=== PATIENT | female | born 1970 | race Caucasian/White ===

== ENCOUNTER 2016-11-04 08:00 | Outpatient (CLI) | payer MEDICAID | END 2016-11-04 08:01 | disposition home or self-care (01) | DX: L08.9 Local infection of the skin and subcutaneous tissue, unspecified (principal) ==

== ENCOUNTER 2017-02-13 09:21 | Outpatient (CLI) | payer MEDICAID ==
--- NOTE | 2017-02-13 15:19 | DEXA Report ---
DEXA SCAN: 02/13/2017 CLINICAL INDICATION: A 46-year-old female with inflammatory arthritis. TECHNIQUE: Dual energy x-ray absorptiometry (DXA) was performed on a [employer]pi[employer] system. Regions measured are the AP spine, femoral neck, and, if needed, forearm. COMPARISON: None. In accordance with the International Society for Clinical Densitometry (ISCD) guidelines, data from previous exams may be reanalyzed using current recommendations and techniques. This is done to allow a more accurate basis for comparison with the current study. FINDINGS: The data for the lumbar spine is as follows: REGION BMD (g/cm/cm) T-SCORE Z-SCORE L1 0.898 -1.9 -1.9 L2 0.911 -2.4 -2.4 L3 1.070 -1.1 -1.1 L4 1.190 -0.1 -0.1 TOTAL 1.022 -1.3 -1.3 NOTE: All evaluable vertebrae are used for classification. The data for the hip is as follows: REGION BMD (g/cm/cm) T-SCORE Z-SCORE Neck 0.937 -0.7 -0.2 TOTAL 0.920 -0.7 -0.5 NOTE: The femoral neck or total proximal femur, whichever is lowest, is used for classification. * Denotes significant change at the 95% confidence level. Denotes dissimilar scan types or analysis methods. IMPRESSION: THE WHO CLASSIFICATION BASED ON THE INTERNATIONAL REFERENCE STANDARD IS MILD OSTEOPENIA. THE FRACTURE RISK IS INCREASED. RECOMMENDATION: Patients with diagnosis of osteoporosis or osteopenia should have regular bone mineral density assessment. For those eligible for Medicare, routine testing is allowed once every 2 years. Testing frequency can be increased for patients who have rapidly progressing disease or for those who are receiving medical therapy to restore bone mass. COMMENT: World Health Organization (WHO) definitions for osteoporosis and osteopenia: NORMAL BMD: T-score at -1.0 or higher, fracture risk is low. OSTEOPENIA BMD: T-score between -1.0 and -2.5, fracture risk is increased. OSTEOPOROSIS BMD: T-score at -2.5 or lower, fracture risk high. National Osteoporosis Foundation recommends: 1. Obtain adequate dietary calcium (at least 1200 mg per day) and vitamin D (400 -800 international units per day). 2. Participate, as appropriate, in regular weightbearing and muscle- strengthening exercise. 3. Avoid tobacco use and reduce alcohol and caffeine intake. 4. For more detailed information see the website at www.NOF.org. MTDD
== END 2017-02-13 09:22 | disposition home or self-care (01) ==
LOC: DI 09:21
PROVIDERS: ATTEND Obstetrics & Gynecology
DX: M85.88 Other specified disorders of bone density and structure, other site (principal)
CPT/HCPCS: 77080

== ENCOUNTER 2017-02-14 14:38 | Outpatient (CLI) | payer MEDICAID ==
--- NOTE | 2017-02-17 09:00 | Mammography Report ---
DIGITAL BILATERAL SCREENING MAMMOGRAM: 02/14/2017 CLINICAL HISTORY: A 46-year-old female in for routine screening mammogram. Patient's family history indicates an aunt and grandmother with breast cancers. These were postmenopausal breast cancers. P faye has had no breast surgeries. COMPARISON: 08/05/2008, 11/18/2010, 02/15/2012, 11/21/2014, 11/06/2015 TECHNIQUE: Craniocaudad and oblique lateral views of each breast were obtained with [employer] digital mammography. FINDINGS: Breast parenchyma consists of scattered fibroglandular densities. No clusters of calcific ation are seen. No masses are noted. No change is detected. IMPRESSION: BREASTS APPEAR RADIOGRAPHICALLY BENIGN. BIRADS CATEGORY 1 - NEGATIVE. RECOMMENDATIONS: Annual bilateral screening mammography. STANDARD QUALIFYING STATEMENTS 1. This examination was reviewed with the aid of Computer-Aided Detection (CAD). 2. A negative or benign imaging report should not delay biopsy if clinically suspicious findings are present. Consider surgical consultation if warranted. More than 5% of cancers are not identified by i maging. 3. Dense breasts may obscure an underlying neoplasm. JOB #: [id number] EXT JOB #:[id number]
== END 2017-02-14 14:39 | disposition home or self-care (01) ==
LOC: DI.N 14:38
PROVIDERS: ATTEND Obstetrics & Gynecology
DX: Z12.39 Encounter for other screening for malignant neoplasm of breast (principal)
CPT/HCPCS: 77067

== ENCOUNTER 2017-12-08 08:00 | Outpatient (CLI) | payer MEDICAID, MEDICARE ==
[2017-12-08 19:02] LABS: BASOPHILS # (AUTO) 0.1 10^3/uL (0.0-0.1); BASOPHILS % (AUTO) 0.9 %; EOSINOPHILS # (AUTO) 0.1 10^3/uL (0.0-0.7); EOSINOPHILS % (AUTO) 1.9 %; HGB - HEMOGLOBIN 15.2 g/dL (12.0-16.0); LYMPHOCYTES # (AUTO) 1.7 10^3/uL (1.5-3.5); LYMPHOCYTES % (AUTO) 24.1 %; MEAN CORPUSCULAR HEMOGLOBIN 30.4 pg (27.0-31.0); MEAN CORPUSCULAR HGB CONC 32.5 g/dL (32.0-36.0); MEAN CORPUSCULAR VOLUME 93.4 fL (81.0-99.0); MEAN PLATELET VOLUME 7.3 fL (7.9-10.8); MONOCYTES # (AUTO) 0.6 10^3/uL (0.0-1.0); MONOCYTES % (AUTO) 8.5 %; NEUTROPHILS # (AUTO) 4.6 10^3/uL (1.5-6.6); NEUTROPHILS % (AUTO) 64.6 %; PLT - PLATELET COUNT 387 10^3/uL (130-450); RED BLOOD COUNT 4.99 10^6/uL (4.20-5.40); RED CELL DISTRIBUTION WIDTH 13.4 % (12.0-15.0); WHITE BLOOD COUNT 7.1 x10^3/uL (4.8-10.8)
[2017-12-08 19:39] LABS: ALBUMIN 4.4 g/dL (3.2-5.5); ALBUMIN/GLOBULIN RATIO 1.6 (1.0-2.2); ALKALINE PHOSPHATASE 49 IU/L (42-121); ALT ALANINE AMINOTRANSFERASE 31 IU/L (10-60); AST ASPARTATE AMINOTRANSFERASE 30 IU/L (10-42); BILIRUBIN,TOTAL 0.7 mg/dL (0.2-1.0); BUN - BLOOD UREA NITROGEN 11 mg/dL (6-20); CALCIUM 9.2 mg/dL (8.5-10.3); CARBON DIOXIDE - CO2 25 mmol/L (21-32); CHLORIDE 105 mmol/L (101-111); CHOL/HDL RATIO 7.7 (<4.4); CHOLESTEROL 240 mg/dL; CREATININE 0.8 mg/dL (0.4-1.0); GFR - MDRD 76 (>89); GLUCOSE 100 mg/dL (70-100); HDL CHOLESTEROL 31 mg/dL; LDL CHOLESTEROL,CALCULATED 185 mg/dL; SODIUM 137 mmol/L (135-145); TOTAL PROTEIN 7.2 g/dL (6.7-8.2); VLDL CHOLESTEROL 24 mg/dL
== END 2017-12-08 08:01 | disposition home or self-care (01) ==
LOC: LAB.WCP 08:00
PROVIDERS: ATTEND Physician Assistant Medical
DX: I10 Essential (primary) hypertension (principal)
CPT/HCPCS: 36415; 80053; 80061; 83721; 85025

== ENCOUNTER 2018-09-04 14:39 | Outpatient (CLI) | payer MEDICARE ==
[2018-09-04 20:20] LABS: CHOL/HDL RATIO 4.3 (<4.4); CHOLESTEROL 183 mg/dL; HDL CHOLESTEROL 43 mg/dL; LDL CHOLESTEROL,CALCULATED 125 mg/dL; LDL/HDL RATIO 2.9 (<4.4); VLDL CHOLESTEROL 15 mg/dL
== END 2018-09-04 23:59 | disposition home or self-care (01) ==
LOC: LAB.WCP 14:39
PROVIDERS: ATTEND Physician Assistant Medical
DX: E78.5 Hyperlipidemia, unspecified (principal)
CPT/HCPCS: 36415; 80061; 83721

== ENCOUNTER 2019-02-22 15:07 | Outpatient (CLI) | payer MEDICARE ==
--- NOTE | 2019-02-22 16:39 | MRI Report ---
Reason: CERVICAL RADICULOPATHY Procedure Date: 02/22/2019 Accession Number: [id number] / [id number] Procedure: MRI - Cervical Spine W/O CPT Code: FULL RESULT: EXAM: MRI CERVICAL SPINE WITHOUT CONTRAST EXAM DATE: 02/22/2019 04:00 PM. CLINICAL HISTORY: CERVICAL RADICULOPATHY, neck pain, bilateral arm pain. COMPARISONS: CERVICAL SPINE 2 VIEW 01/05/2017 3:58 PM. TECHNIQUE: Multiplanar, multisequence T1-weighted and fluid-sensitive sequences of the cervical spine without contrast. Other: None. FINDINGS: Detail mildly compromised by motion. Neurologic Structures: The visualized posterior fossa structures are unremarkable. No signal abnormality in the visualized spinal cord. Alignment: No scoliosis or spondylolisthesis. Bone Marrow: No gross fractures or bone lesions. No marrow edema. Interspace Levels/Facets: C1-C2: Unremarkable. C2-C3: Unremarkable. C3-C4: Unremarkable. C4-C5: Unremarkable. C5-C6: There is mild disk height loss and endplate degenerative changes. There is a disk osteophyte complex with moderate central canal narrowing. There is severe right and mild left neural foraminal narrowing. C6-C7: There is a disk osteophyte complex with mild central canal narrowing. There is severe right and mild left neural foraminal narrowing. C7-T1: Unremarkable. Musculature: Normal. No edema or fatty atrophy. Other: The paravertebral and prevertebral soft tissues are normal. IMPRESSION: 1. C5-C6 disk osteophyte complex with moderate central canal narrowing. 2. C6-C7 mild central canal narrowing. 3. Severe right C5-C6 and severe right C6-C7 neural foraminal narrowing. Mild left C5-C6 and mild left C6-C7 neural foraminal narrowing. RADIA
--- NOTE | 2019-02-25 06:38 | MRI Report ---
Reason: LUMBAR REGION AND CEVERICAL RADICULOPATHY Procedure Date: 02/22/2019 Accession Number: [id number] / [id number] Procedure: MRI - Lumbar Spine W/O CPT Code: FULL RESULT: EXAM: MRI LUMBAR SPINE WITHOUT CONTRAST EXAM DATE: 02/22/2019 04:20 PM. CLINICAL HISTORY: Lumbar radiculopathy. COMPARISON: MRI LUMBAR SPINE W/O CONT 10/30/2012 7:43 AM. TECHNIQUE: Multiplanar, multisequence T1-weighted and fluid-sensitive sequences of the lumbar spine from T9 to S1 without contrast. Other: None. FINDINGS: Spinal Canal: The conus terminates at L2. The conus medullaris and cauda equina are unremarkable. Alignment: Mild retrolisthesis at L3-L4, L4-L5, and L5-S1 is stable. Bone Marrow: Five aet-etn-[id number] lumbar vertebral bodies are assumed. No gross fractures or bone lesions. No bone marrow replacement. Disk Levels/Facets: T9-T10: On sagittal images, there is a minimal disk bulge without impingement of the spinal cord. The foramina are patent. T10-T11: On sagittal images, there is a minimal disk bulge. No spinal cord impingement is seen. The foramina are patent. T11-T12: On sagittal images, a mild disk bulge is present without spinal cord impingement. A left perineural cyst is noted. The foramina are patent. T12-L1: Unremarkable. L1-L2: Unremarkable. L2-L3: Left side facet arthropathy results in mild left foraminal narrowing. The spinal canal and right foramen are patent. These findings are stable. L3-L4: A disk bulge and ligamentum flavum infolding result in mild spinal canal stenosis. There is mild bilateral foraminal narrowing. Spinal canal and foraminal stenosis is new compared to the prior MRI. L4-L5: A disk bulge and ligamentum flavum infolding result in mild spinal canal stenosis. There is mild bilateral foraminal narrowing. Spinal canal and foraminal stenosis is new compared to the prior MRI. L5-S1: A left foraminal protrusion extends to the left foramen. Posterior displacement of the left S1 nerve root is noted. There is mild spinal canal stenosis. Disk height loss and bilateral facet arthropathy results in mild bilateral foraminal narrowing. These findings are similar to the prior MRI. Musculature: Normal. No edema or fatty atrophy. Other: The partially visualized retroperitoneum is unremarkable. IMPRESSION: 1. Normal conus medullaris and cauda equina. 2. Mild posterior displacement of the descending left S1 nerve root in the lateral recess due to a paracentral protrusion is stable compared to the lumbar spine MRI from 10/30/2012. 3. Mild progression of degenerative changes are noted at L3-L4 and L4-L5 but no high-grade spinal canal or foraminal stenosis is seen at these levels. Comment: The following findings are so common in adults without low back pain that while we report their presence, they must be interpreted with caution and in the context of the clinical situation. (Reference Lidiavik et al, Spine 2001) Prevalence of findings in patients without low back pain: Disk degeneration (any evidence): 92% Disk desiccation/T2 signal loss: 83% Disk height loss: 56% Disk bulge: 64% Disk protrusion: 32% Annular tear/high intensity zone: 38% RADIA
== END 2019-02-22 15:08 | disposition home or self-care (01) ==
LOC: DI 15:07
PROVIDERS: ATTEND Physician Assistant Medical
DX: M54.12 Radiculopathy, cervical region (principal); M48.02 Spinal stenosis, cervical region; M51.16 Intervertebral disc disorders with radiculopathy, lumbar region; M25.78 Osteophyte, vertebrae
CPT/HCPCS: 72141; 72148

== ENCOUNTER 2019-07-29 09:00 | Outpatient (CLI) | payer MEDICARE | END 2019-07-29 23:59 | disposition home or self-care (01) | LOC: LAB.R 09:00 | PROVIDERS: ATTEND Physician Assistant Medical | DX: L20.9 Atopic dermatitis, unspecified (principal) | CPT/HCPCS: 81599; 87070; 87077; 87181; 87184; 87205 ==

== ENCOUNTER 2019-09-27 07:56 | Outpatient (CLI) | payer MEDICARE | END 2019-09-27 07:57 | disposition EMS.NT | LOC: EMS 07:56 | PROVIDERS: ATTEND Surgery | DX: S80.921A Unspecified superficial injury of right lower leg, initial encounter (principal); X58.XXXA Exposure to other specified factors, initial encounter ==

== ENCOUNTER 2020-01-01 08:00 | Outpatient (CLI) | payer MEDICARE | END 2020-01-01 23:59 | disposition home or self-care (01) | LOC: LAB.R 08:00 | PROVIDERS: ATTEND Physician Assistant Medical | DX: L08.9 Local infection of the skin and subcutaneous tissue, unspecified (principal) | CPT/HCPCS: 87070; 87205 ==

== ENCOUNTER 2020-01-01 18:56 | Outpatient (CLI) | payer MEDICARE ==
--- NOTE | 2020-01-01 21:29 | Ultrasound Report ---
Reason: LEG EDEMA RT Procedure Date: 01/01/2020 Accession Number: [id number] / [id number] Procedure: US - Duplex Ext Veins Right CPT Code: Final Report FULL RESULT: EXAM: RIGHT LOWER EXTREMITY VENOUS ULTRASOUND EXAM DATE: 01/01/2020 07:28 PM. CLINICAL HISTORY: Right leg edema COMPARISON: None. TECHNIQUE: Real-time sonographic vascular imaging was performed by the locomotive lubricating systems clerk through the lower extremity utilizing both color-flow and Doppler spectral analysis. Multiple roofing sales representative static images were saved for review. FINDINGS: Common Femoral Vein (CFV): Normal. CFV-GSV Junction: Normal. Profunda Femoral Vein (PFV): Normal. Femoral Vein (FV) Prox: Normal. Femoral Vein (FV) Mid: Normal. Femoral Vein (FV) Dist: Normal. Popliteal Vein: Normal. Posterior Tibial Veins: Normal. Peroneal Veins: Limited visualization secondary to body habitus. Other: Prominent right inguinal lymph node measuring 1.1 cm in the short axis dimension. IMPRESSION: No evidence for deep venous thrombosis. RADIA The call report notification system was initiated by Dr. Eleonora Ríos at 09:12 PM on 01/01/2020.
== END 2020-01-01 18:57 | disposition home or self-care (01) ==
LOC: DI 18:56
PROVIDERS: ATTEND Physician Assistant Medical
DX: R60.0 Localized edema (principal); L08.9 Local infection of the skin and subcutaneous tissue, unspecified
CPT/HCPCS: 87070; 87205

== ENCOUNTER 2020-01-13 08:00 | Outpatient (CLI) | payer MEDICARE | END 2020-01-13 23:59 | disposition home or self-care (01) | LOC: LAB.R 08:00 | PROVIDERS: ATTEND Physician Assistant Medical | DX: L08.9 Local infection of the skin and subcutaneous tissue, unspecified (principal) | CPT/HCPCS: 87070; 87077; 87181; 87205 ==

== ENCOUNTER 2020-04-07 08:00 | Outpatient (CLI) | payer MEDICARE | END 2020-04-07 23:59 | disposition home or self-care (01) | LOC: LAB.WCP 08:00 | PROVIDERS: ATTEND Physician Assistant Medical | DX: L08.9 Local infection of the skin and subcutaneous tissue, unspecified (principal) | CPT/HCPCS: 36415; 80053; 83880; 84443; 85025; 85379; 87070; 87181; 87205 ==

== ENCOUNTER 2020-09-01 07:00 | Outpatient (CLI) | payer MEDICARE | END 2020-09-01 23:59 | disposition home or self-care (01) | LOC: LAB.R 07:00 | PROVIDERS: ATTEND Physician Assistant Medical | DX: J45.31 Mild persistent asthma with (acute) exacerbation (principal); Z20.828 Contact with and (suspected) exposure to other viral communicable diseases | CPT/HCPCS: 87275; 87276; U0004 ==

== ENCOUNTER 2020-12-01 07:55 | Outpatient (CLI) | payer MEDICARE | END 2020-12-01 07:56 | disposition home or self-care (01) | LOC: DI 07:55 | PROVIDERS: ATTEND Internal Medicine Gastroenterology | DX: R01.1 Cardiac murmur, unspecified (principal); L97.223 Non-pressure chronic ulcer of left calf with necrosis of muscle; L03.116 Cellulitis of left lower limb | CPT/HCPCS: 93306 ==